=== PATIENT | female | born 1945 | race Caucasian/White ===

== ENCOUNTER → 2017-06-25 | Outpatient (CLI) | payer OTHER ==
[~2017-06-25] MED LIST: ACTONEL OR; ADULT LOW DOSE81 MG PO; CALTRATE-600 W1 EACH PO; CENTRUM SILVER1 EAC1 PO; CLARITIN10 MG PO; COUMADIN 5 MG TA5 M1 PO; COZAAR 25 MG TA25 M1 PO; ENDOCET 5-3251 EACH PO; IRON325 PO; LEXAPRO 10 MG T10 MG PO; NORVASC2.5 MG PO; PERCOCET 10-321 EACH PO
== END ==
LOC: RAD 01:57
DX: Z12.31 Encounter for screening mammogram for malignant neoplasm of breast (principal)

== ENCOUNTER → 2018-07-30 | Outpatient (CLI) | payer OTHER | LOC: MRI 08:59 | DX: M47.26 Other spondylosis with radiculopathy, lumbar region (principal); M16.11 Unilateral primary osteoarthritis, right hip; M51.16 Intervertebral disc disorders with radiculopathy, lumbar region; M48.062 Spinal stenosis, lumbar region with neurogenic claudication; M81.0 Age-related osteoporosis without current pathological fracture ==

== ENCOUNTER → 2019-07-13 | Outpatient (CLI) | payer OTHER | LOC: RAD 01:57 | DX: Z12.31 Encounter for screening mammogram for malignant neoplasm of breast (principal) ==

== ENCOUNTER → 2020-06-22 | Outpatient (CLI) | payer OTHER | LOC: SJCVC 13:06 | PROVIDERS: ATTEND Internal Medicine Cardiovascular Disease | DX: I10 Essential (primary) hypertension (principal); R94.31 Abnormal electrocardiogram [ECG] [EKG]; E78.5 Hyperlipidemia, unspecified; Z86.711 Personal history of pulmonary embolism; Z79.899 Other long term (current) drug therapy; Z87.891 Personal history of nicotine dependence ==

== ENCOUNTER → 2020-07-20 | Outpatient (CLI) | payer OTHER | LOC: BC 10:16 | PROVIDERS: ATTEND Family Medicine | DX: Z12.31 Encounter for screening mammogram for malignant neoplasm of breast (principal) ==

== ENCOUNTER → 2020-08-22 | Outpatient (CLI) | payer OTHER | LOC: SJCVCIMAG 10:23 | PROVIDERS: ATTEND Internal Medicine Cardiovascular Disease | DX: I08.1 Rheumatic disorders of both mitral and tricuspid valves (principal); I49.3 Ventricular premature depolarization; I10 Essential (primary) hypertension; E78.5 Hyperlipidemia, unspecified; Z90.710 Acquired absence of both cervix and uterus; Z86.711 Personal history of pulmonary embolism; Z79.899 Other long term (current) drug therapy; Z87.891 Personal history of nicotine dependence ==